=== PATIENT | female | born 1985 ===

== ENCOUNTER 2017-09-29 04:04 | Emergency (ER) | payer BC ==
[2017-09-29] MEDS ORDERED: Al Hydrox/Mg Hydrox/Simet LIQ* 30 ML UDC PO ONE (04:23)
[2017-09-29] MEDS ORDERED: Lidocaine 2% VISCOUS* 15 ML UDC PO ONE (04:23)
[2017-09-29] MEDS ORDERED: Metoclopramide IV* 5 MG/ML 2 ML VIAL IV SLOW PU ONE (04:24)
[2017-09-29] MEDS ORDERED: Famotidine IV* 10 MG/ML 2 ML (20 mg) IV SLOW PU ONE (04:24)
[2017-09-29 04:41] LABS: ABS Basophils 0.1 10^3/ul (0-0.2); ABS Eosinophils 0.2 10^3/ul (0-0.6); ABS Lymphocytes 1.6 10^3/ul (1.0-4.8); ABS Monocytes 0.6 10^3/ul (0-0.8); ABS Neutrophils 7.1 10^3/ul (1.5-7.7); ABS Nucleated RBC 0 10^3/ul; Eosinophil % 2.2 % (0-6); Hematocrit 32 % (35-47); Hemoglobin 10.6 g/dl (12.0-16.0); Lymphocyte % 16.5 % (25-47); Mean Corpuscular HGB Conc 33 g/dl (31-36); Mean Corpuscular Hemoglobin 29 pg (27-31); Mean Corpuscular Volume 88 fL (80-97); Mean Platelet Volume 8.2 um3 (7.4-10.4); Nucleated Red Blood Cells % 0.1; Platelet Count 187 10^3/ul (150-450); Red Blood Count 3.63 10^6/ul (4.00-5.40); Red Cell Distribution Width 14 % (10.5-15); White Blood Count 9.6 10^3/ul (3.5-10.8)
[2017-09-29 04:57] LABS: EGFR Non-African American 157.4 (>60)
--- NOTE | 2017-09-29 05:32 | ED ---
Tramaine Brown Gabriel, scribed for Elfar, Abdul, MD on 09/29/17 at 0425 . GI/ HPI - HPI Summary HPI Summary: This patient is a 32 year old F presenting to [facility] accompanied by her partner with a chief complaint of n/v that began at 0330 this morning. The patient rates the pain 4/10 in severity. Patient reports increase in belching. Patient denies diarrhea. The pt is 23 week with her first child and states she vomited often during her first trimester but has not recently. - History of Current Complaint Chief Complaint: EDNauseaVomitDiarrh Time Seen by Provider: 09/29/17 04:17 Stated Complaint: VOMITING/5 MONS. PREG Hx Obtained From: Patient Onset/Duration: Still Present Timing: Constant Severity: Moderate Current Severity: Moderate Pain Intensity: 4 Location of Pain: Diffuse Associated Signs and Symptoms: Positive: Nausea, Vomiting - Allergy/Home Medications Allergies/Adverse Reactions: Allergies Allergy/AdvReac Type Severity Reaction Status Date / Time No Known Allergies Allergy Verified 09/29/17 04:08 PMH/Surg Hx/FS Hx/Imm Hx Cardiovascular History: Denies: Hx Atrial Fibrillation, Hx Auto Implanted Cardiovert Defib, Hx Cardiomegaly, Hx Congestive Heart Failure, Hx Coronary Artery Disease, Hx Hypercholesterolemia, Hx Supraventricular Ventricular Tachycardia Respiratory History: Denies: Hx Chronic Bronchitis, Hx Chronic Obstructive Pulmonary Disease (COPD ) Sensory History: Denies: Hx Macular Degeneration Neurological History: Denies: Hx Developmental Delay Infectious Disease History: No Infectious Disease History: Denies: Traveled Outside the [place] in Last 30 Days - Family History Known Family History: Positive: Hypertension - Social History Lives: With Family Alcohol Use: None Substance Use Type: Reports: None Smoking Status (MU): Never Smoked Tobacco Review of Systems Negative: Fever Positive: Vomiting, Nausea, Other - increase in belching. Negative: Diarrhea Negative: Slurred Speech All Other Systems Reviewed And Are Negative: Yes Physical Exam - Summary Physical Exam Summary: VITAL SIGNS: Reviewed. GENERAL: Patient is a well-developed and nourished female who is lying comfortable in the stretcher. Patient is not in any acute respiratory distress. HEAD AND FACE: No signs of trauma. No ecchymosis, hematomas or skull depressions. No sinus tenderness. EYES: PERRLA, EOMI x 2, No injected conjunctiva, no nystagmus. EARS: Hearing grossly intact. Ear canals and tympanic membranes are within normal limits. MOUTH: Oropharynx within normal limits. NECK: Supple, trachea is midline, no adenopathy, no JVD, no carotid bruit, no c- spine tenderness, neck with full ROM. CHEST: Symmetric, no tenderness at palpation LUNGS: Clear to auscultation bilaterally. No wheezing or crackles. CVS: Regular rate and rhythm, S1 and S2 present, no murmurs or gallops appreciated. ABDOMEN: epigastric tenderness. Fundal level is about 23 weeks EXTREMITIES: FROM in all major joints, no edema, no cyanosis or clubbing. NEURO: Alert and oriented x 3. No acute neurological deficits. Speech is normal and follows commands. SKIN: Dry and warm Triage Information Reviewed: Yes Vital Signs On Initial Exam: Initial Vitals Temp Pulse Resp BP Pulse Ox 97.5 F 87 18 121/68 100 09/29/17 04:05 09/29/17 04:05 09/29/17 04:05 09/29/17 04:05 09/29/17 04:05 Vital Signs Reviewed: Yes Diagnostics - Vital Signs Vital Signs Temp Pulse Resp BP Pulse Ox 09/29/17 04:05 97.5 F 87 18 121/68 100 - Laboratory Result Diagrams: 09/29/17 04:34 09/29/17 04:34 Lab Statement: Any lab studies that have been ordered have been reviewed, and results considered in the medical decision making process. GIGU Course/Dx - Course Assessment/Plan: This patient is a 32 year old F presenting to [facility] accompanied by her partner with a chief complaint of n/v that began at 0330 this morning. The patient rates the pain 4/10 in severity. Patient reports increase in belching. Patient denies diarrhea. The pt is 23 week with her first child and states she vomited often during her first trimester but has not recently. Blood work obtained. Dx gastritis. In the ED course the patient was given GI cocktail and feels better. Patient will be discharged with prescription for reglan and follow up from PCP. The patient is agreeable with this plan. - Diagnoses Provider Diagnoses: Gastritis Discharge - Sign-Out/Discharge Documenting (check all that apply): Discharge/Admit/Transfer - Discharge Plan Condition: Stable Disposition: HOME Prescriptions: Metoclopramide TAB* [Reglan TAB*] 10 mg PO Q6H PRN #20 tab PRN Reason: Nausea/Vomiting Patient Education Materials: Gastritis (ED) Referrals: Carroll Vasquez MD [Primary Care Provider] - 3 Days Additional Instructions: RETURN TO THE ER FOR ANY NEW OR WORSENING SYMPTOMS The documentation as recorded by the Tramaine connors Gabriel accurately reflects the service I personally performed and the decisions made by , Elie Adame MD.
[2017-09-29 05:55] VITALS: BP 115/68
== END 2017-09-29 05:54 | disposition home or self-care (01) ==
LOC: ED 04:04
DX: O26.892 Other specified pregnancy related conditions, second trimester (principal); Z3A.23 23 weeks gestation of pregnancy; K29.70 Gastritis, unspecified, without bleeding
CPT/HCPCS: 36415; 80053; 82150; 83690; 83735; 85025; 86140; 96374; 96375; 99283; A9270-GY; J2765